=== PATIENT | male | born 1985 | race Caucasian/White ===

== ENCOUNTER → 2016-07-24 | Day surgery (SDC) | payer MEDICAID ==
[~2016-07-24] MED LIST: ATENOLOL50 MG PO; BUPROPION XL300 M1 PO; HYDROCODON-ACE1 EAC7 PO; IMITREX PO; NEURONTIN600 MG PO; OMEPRAZOLE20 M2 PO; PRAZOSIN HCL5 MG PO; SEROQUEL100 MG PO; SIMVASTATIN40 MG PO; TIZANIDINE HCL4 M1 PO; ZOFRAN ODT4 MG PO
--- NOTE | ~2016-07-24 | OR ---
Unit #: [id number] #: [id number] Patient: JAHAIRA CORDOVA [id number] [address] [place], [place] [address] [id number] O MR#: [id number] NAME: JAHAIRA CORDOVA ROOM: Date of Procedure: 07/24/2016 Admission Date: 07/24/2016 Surgeon: Sj Griffith M.D. : 1985 Attending Physician: Sj Griffith M.D. Primary Care Physician: Trang Richter A.P.R.N. OPERATIVE REPORT PREOPERATIVE DIAGNOSIS Internal disruption of disk at L5-S1 with L5 radiculopathy, left side. POSTOPERATIVE DIAGNOSIS Internal disruption of disk at L5-S1 with L5 radiculopathy, left side. PROCEDURES PERFORMED 1. Implantation of spinal cord stimulator electrodes x2 Medtronic. 2. Implantation of implantable pulse generator Medtronic. 3. Fluoroscopy. 4. Physician programming of stimulator. SURGICAL INDICATION AND RATIONALE Mr. Jahaira Cordova is a 31-year-old gentleman, who was referred to me by Dr. Bipin Nunn, who was a local surgeon who referred the patient for spinal cord stimulator trial for radiculopathy down the left lower extremity. The patient has had epidural injections and other physical therapy and chiropractic type of care with very limited relief of pain. The patient continues to have radicular pain and would like to see if the neuromodulation would help this patient. The patient did have a trial of spinal cord stimulation with 2 electrodes placed at the upper border of T7 with a subcompact octad and a compact octad, which were placed in the off midline to the left position. The patient had about 80% to 90% reduction in pain and was able to tolerate neuromodulation. The patient has also undergone an education process, where all the risks, benefits, and alternatives were discussed with the patient and all the patient's questions were answered to his satisfaction. I used a teach-back method to ascertain that the patient understood my explanations of all the risks, benefits, and alternatives available. The patient also has undergone a cardiac clearance along with psychological evaluation both of which did not show any contraindications to moving forward with this implant. DESCRIPTION OF PROCEDURE After obtaining full informed consent and after discussion with the patient of possible complications including infection, bleeding, paralysis, mild headaches, , and other perioperative complications were discussed with the patient and consent was obtained in front of the preoperative nurse, Alba. The patient was then taken back to the operating room, where a time-out was done in accordance to the joint commission guidelines where the patient's identity, procedure, and side of procedure were verified. The patient received antibiotic coverage 30 Unit #: [id number] #: [id number] Patient: JAHAIRA CORDOVA minutes before entering the operating room. General anesthesia was then induced by Dr. Loaiza and the patient was positioned in the prone position and he was prepped and draped in the usual fashion. I first made an incision in the left lowest part of his back after the skin was anesthetized, measuring about 5 cm in length. With the help of the Bovie, I was able to fashion a pocket to house the [employer] SureScan MRI IPG. Once this was done, this pocket was copiously irrigated with irrigant. All bleeders were stopped. I then visualized the lumbar spine under fluoroscopy and between the L1-L2 interspace after the skin target sites were anesthetized. I made an incision which measured 4 cm in length and with the help of the Bovie, I was able undermined the subcutaneous tissue to create space to house the electrodes. I then placed a 14-gauge Tuohy needle, using off left of the midline position to access the epidural space which I was able to do at first pass. Once epidural space was accessed and after negative aspiration for heme, CSF, and paresthesia, I navigated a [employer] subcompact octad to a position left of midline at the upper border of T7. This was done under live fluoroscopic view and I visualized the lateral projections of the C-arm to make sure the electrode was in the posterior epidural space. Once this was done, I placed a second 14-gauge Tuohy needle in a similar position to access the epidural space which once again, I was able to accomplish at first pass. I then navigated a compact octad with the contacts being right below the first electrode. Once again, the electrode was placed left of the midline. This was done, so that I would have adequate coverage of the entire left lower extremity. Once this was done, the Tuohy needle along with stylets were removed and I used a special anchoring device to anchor this electrode to the interspinous ligament. The anchor was then further secured using 3-0 Prolene sutures. This incision was then copiously irrigated with irrigant. I then used a tunneling device to tunnel these 2 electrodes from the lumbar incision into the pocket. The electrodes were then secured to the [employer] SureScan MRI IPG and the impedances were checked and they were all deemed to be normal. The 2 incisions were then carefully inspected and closed using interrupted 3-0 Vicryl sutures and the skin was approximated with leighton. A Telfa and Tegaderm dressing were placed and the patient was brought back to the recovery room for neurological monitoring. PLAN OF CARE After the patient recovered from anesthesia, spinal cord stimulator programming was then conducted and we were able to get good coverage of all the painful areas on the left lower extremity including the left low back. Once this was done, the patient was discharged home neurologically intact with plans to return to my office in 7 days to have the leighton removed. The patient acknowledges understanding of all the risks, benefits, and alternatives available and would like to proceed. The Medtronic electrode kit serial number is [id number] and [id number]. The IPG RestoreSensor SureScan serial number is [id number]. Dictated by... Sanjana Crooks/danette TD: 07/25/2016 08:40 JOB #: [id number] Unit #: [id number] #: [id number] Patient: JAHAIRA CORDOVA OPERATIVE REPORT Page 1 of 1 X Sj Griffith MD PROCEDURE OPERATIVE NOTE
--- NOTE | ~2016-07-24 | CR181 ---
[facility] A Service of [facility] & [facility] RADIOLOGY TEXT RESULTS PATIENT: JAHAIRA PETERS LOCATION: [facility] : [birth year] UNIT #: [id number] AGE: [address]: Sj Griffith MD SEX: M ORDER DR: [id number] [facility] [address] [place], [place] [address] [id number] O MR#: [id number] Acc #: [id number] NAME: JAHAIRA PETERS : 1985 SEX: M STUDY DATE/TIME: 07/24/2016 15:28 UNIT: [facility] ROOM: STUDY DESCRIPTION: CR Lumbar Spine 2 or 3 Views Attending Physician: Sj Griffith M.D. Ordering Physician: Sj Griffith M.D. Primary Care Physician: Trang Richter A.P.R.N. MEDICAL IMAGING REPORT This report is preliminary unless electronic signature is present EXAM Lumbar spine series 07/24/2016 HISTORY Spinal cord stimulator. Fluoroscopy time, 8-minute 28 second. 2 fluoroscopic spot images. FINDINGS AP and lateral radiographs of the spine obtained intraoperatively show patient undergoing placement of spinal stimulator leads. Please see operative report for full procedural details. The visualized bony structures show no grossly acute abnormality. Alignment is grossly normal. Dictated by... Kevyn Rowland M.D. THIS IS AN ELECTRONICALLY VERIFIED REPORT Kevyn Rowland M.D. at 07/27/2016 8:20 PM CATHERINE/winnie TD: 07/25/2016 05:26 JOB #: [id number] MEDICAL IMAGING REPORT Page 1 of 1 COPY
--- NOTE | ~2016-07-24 | EKG ---
PATIENT: JAHAIRA PETERS UNIT #: [id number] Ventricular Rate: 74 BPM Atrial Rate: 74 BPM P-R Interval: 140 ms QRS Duration: 84 ms Q-T Interval: 366 ms QTC Calculation(Bezet): 406 ms P [place]: 35 degrees Calculated R [place]: 30 degrees Calculated T [place]: 41 degrees Diagnosis Line: Normal sinus rhythm Diagnosis Line: Normal ECG Diagnosis Line: No previous ECGs available Diagnosis Line: Confirmed by RAND MACIAS MD ([id number]) on 07/24/2016 Diagnosis Line: 8:10:45 PM INTERPRETING MD: COLLEEN RANDLE
== END | disposition home or self-care (01) ==
LOC: CSUR 10:18
DX: G89.29 Other chronic pain (principal); M51.16 Intervertebral disc disorders with radiculopathy, lumbar region; I10 Essential (primary) hypertension; E66.9 Obesity, unspecified; F17.210 Nicotine dependence, cigarettes, uncomplicated; Z68.32 Body mass index [BMI] 32.0-32.9, adult; Z88.5 Allergy status to narcotic agent; Z79.899 Other long term (current) drug therapy; Z98.890 Other specified postprocedural states
CPT/HCPCS: 72100; 76000; 93005; C1778; C1820; J0330; J0690; J1100; J2250; J2405; J2710; J3010; J3370